=== PATIENT | male | born 1990 | race Caucasian/White ===

== ENCOUNTER 2017-07-07 13:36 | Emergency (ER) | payer OTHER ==
[~2017-07-07] VITALS: Ht 175.3 cm; Wt 65.8 kg
[2017-07-07 15:17] VITALS: BP 130/74
[2017-07-07] MEDS ORDERED: HYDROcodone-ACET 10/325MG TAB ONE (15:59)
[2017-07-07] MEDS ORDERED: ONDANSETRON ODT 4 MG TAB PO ONE ×2 (16:01→16:15)
[2017-07-07] MEDS ORDERED: HYDROcodone-ACET 10/325MG TAB PO ONE (16:15)
[2017-07-07] MEDS ORDERED: TETANUS-DIPTH-ACEL PERTUSSIS 0.5ML SYRG IM ONE (17:00)
== END 2017-07-07 17:20 | disposition home or self-care (01) ==
LOC: ER 13:36
DX: S29.011A Strain of muscle and tendon of front wall of thorax, initial encounter (principal); W17.2XXA Fall into hole, initial encounter; Y93.89 Activity, other specified; Y92.89 Other specified places as the place of occurrence of the external cause; Y99.8 Other external cause status
CPT/HCPCS: 71046; 71250; 74176; 90471; 90715; 99284; Q0162